=== PATIENT | female | born 1975 | race Caucasian/White ===

== ENCOUNTER 2018-02-09 11:12 | Observation (INO) ==
[2018-02-09 11:35] LABS: Bilirubin,Urine Negative (Negative); Blood,Urine Trace (Negative); Clarity,Urine Clear (Clear); Color,Urine Yellow (Yellow); Glucose,Urine (UA) Normal (Normal); Ketones,Urine Negative (Negative); Leukocyte Esterase,Urine Negative (Negative); Nitrite,Urine Negative (Negative); PH,Urine 6.5 pH Units (5.0-8.0); Protein,Urine Negative (Neg-Trace); Specific Gravity,Urine 1.009 (1.010-1.025); Urobilinogen,Urine Normal (Normal)
[2018-02-09 11:37] LABS: Bacteria,Urine None Seen per hpf (None-Few); Hyaline Casts,Urine None Seen per lpf (None-Few); RBC,Urine 0-3 per hpf (0-3); Squamous Epithelial Cell,Urine Moderate per lpf (None-Few); WBC,Urine 0-3 per hpf (0-3)
[2018-02-09 13:08] LABS: Basophils % 0.3 %; Eosinophils % 0.6 %; Hematocrit 40.8 % (35.3-44.9); Hemoglobin 13.5 g/dL (11.5-15.4); Immature Granulocytes % 0.4 % (0-4); Lymphocytes # 1.6 K/mcL (0.6-4.6); Lymphocytes % 22.1 %; Mean Corpuscular HGB Conc 33.1 g/dL (31.6-35.5); Mean Corpuscular Hemoglobin 27.7 pg (28.0-33.3); Mean Corpuscular Volume 83.8 fL (83.0-100.0); Mean Platelet Volume 11.8 fL (9.4-12.4); Monocytes # 0.4 K/mcL (0.0-1.3); Monocytes % 5.6 %; Platelet Count 210 K/mcL (140-400); Red Blood Count 4.87 M/mcL (3.82-4.97); Red Cell Distribution Width 13.2 % (11.5-14.5)
[2018-02-09 13:17] LABS: INR 1.2; Prothrombin Time 12.5 Seconds (9.4-12.1)
[2018-02-09 13:18] LABS: Troponin I < 0.03 ng/mL (< 0.04)
[2018-02-09 13:19] LABS: Activated Partial Thrombo Time 34.6 Seconds (26.0-36.0)
[2018-02-09 13:35] LABS: Alanine Aminotransferase 8 Units/L (7-52); Albumin 4.4 g/dL (3.5-5.7); Albumin/Globulin Ratio 1.6 (1.1-2.2); Alkaline Phosphatase 72 Units/L (34-104); Aspartate Amino Transferase 11 Units/L (13-39); BUN/Creatinine Ratio 19 (6-26); Bilirubin,Direct 0.2 mg/dL (0.0-0.2); Bilirubin,Indirect 0.7 mg/dL (0.0-1.2); Bilirubin,Total 0.9 mg/dL (0.3-1.0); Blood Urea Nitrogen 13 mg/dL (6-20); Calcium 9.5 mg/dL (8.6-10.3); Carbon Dioxide 25 mEq/L (23-29); Chloride 104 mEq/L (98-107); Globulin 2.8 g/dL (2.4-3.5); Glucose 104 mg/dL (70-105); Lipase 11 Units/L (11-82); Osmolality,Calculated 286 (280-300); Potassium 3.6 mEq/L (3.5-5.1); Sodium 138 mEq/L (136-145); Total Protein 7.2 g/dL (6.4-8.9); eGFR For African Americans > 60 (> 60); eGFR For Non-African Americans > 60 (> 60)
--- NOTE | 2018-02-09 14:49 | Emergency Department Note ---
Disposition Clinical Impression: Symptomatic bradycardia Disposition: Admitted As Inpatient Referrals: Azeb Lozada, REINFORCING IRON WORKER HELPER [Primary Care Provider] - Time of Disposition: 14:53 General Adult HPI - General Chief complaint: ED General Medical Stated complaint: low HR/flank pain Time Seen by Provider: 02/09/18 12:00 Source: patient Limitations: no limitations - History of Present Illness Pain Scale: 7 - Related Data Home Medications Medication Instructions Recorded Confirmed Propranolol HCl 40 mg PO BID 05/31/15 02/09/18 Tramadol HCl [Ultram] 50 mg PO QID PRN 11/20/16 02/09/18 Acetaminophen/Butalbital/Caffe 1 - 2 tab PO BID PRN 10/05/17 02/09/18 [Fioricet] Dicyclomine [Bentyl] 10 mg PO QID 10/05/17 02/09/18 Gabapentin [Neurontin] 600 mg PO HS 10/05/17 02/09/18 Lisinopril/Hydrochlorothiazide 1 tab PO DAILY 10/05/17 02/09/18 [Zestoretic 10-12.5 mg Tablet] Promethazine [Phenergan] 12.5 - 25 mg PO Q8H PRN 10/05/17 02/09/18 Sertraline [Zoloft] 75 mg PO DAILY 10/05/17 02/09/18 Pantoprazole Sodium [Protonix] 40 mg PO BID 02/09/18 02/09/18 Allergies Allergy/AdvReac Type Severity Reaction Status Date / Time NSAIDS (Non-Steroidal AdvReac See Verified 02/09/18 11:17 Anti-Inflamma Comments Past Medical History - Past Medical History Medical history: Reports: hypertension, migraine, other Surgical history: Reports: appendectomy, breast surgery, cholecystectomy, hysterectomy, orthopedic, other Psychiatric history: Reports: anxiety - Social History Smoking Status: Never smoker Smokeless Tobacco Status: No Alcohol use: Reports: none Drug use: Reports: none Physical Exam - General Limitations: no limitations General appearance: alert Course Vital Signs Temperature 98.4 F 02/09/18 11:17 Pulse Rate 45 02/09/18 11:17 Respiratory Rate 20 02/09/18 11:17 Blood Pressure 129/84 02/09/18 11:17 O2 Sat by Pulse Oximetry 99 02/09/18 11:17 Temperature 98.4 F 02/09/18 11:17 Pulse Rate 53 02/09/18 13:15 Respiratory Rate 15 02/09/18 13:15 Blood Pressure 113/75 02/09/18 13:15 O2 Sat by Pulse Oximetry 97 02/09/18 13:15 Oxygen Delivery Oxygen Delivery Room Air Medical Decision Making - Lab Data Result diagrams: 02/09/18 11:20 02/09/18 11:20 Lab Results 02/09/18 02/09/18 02/09/18 Range/Units 11:20 11:20 11:24 WBC 7.0 (4.3-11.1) K/mcL RBC 4.87 (3.82-4.97) M/mcL Hgb 13.5 (11.5-15.4) g/dL Hct 40.8 (35.3-44.9) % MCV 83.8 (83.0-100.0) fL MCH 27.7 L (28.0-33.3) pg MCHC 33.1 (31.6-35.5) g/dL RDW 13.2 (11.5-14.5) % Plt Count 210 (140-400) K/mcL MPV 11.8 (9.4-12.4) fL Immature Gran % 0.4 (0-4) % Seg Neutrophils % 71.0 % Lymphocytes % 22.1 % Monocytes % 5.6 % Eosinophils % 0.6 % Basophils % 0.3 % Neutrophils # 5.0 (1.6-8.9) K/mcL Lymphocytes # 1.6 (0.6-4.6) K/mcL Monocytes # 0.4 (0.0-1.3) K/mcL Eosinophils # 0.0 (0.0-0.6) K/mcL Basophils # 0.0 (0.0-0.2) K/mcL PT (9.4-12.1) Seconds INR APTT (26.0-36.0) Seconds Sodium 138 (136-145) mEq/L Potassium 3.6 (3.5-5.1) mEq/L Chloride 104 (98-107) mEq/L Carbon Dioxide 25 (23-29) mEq/L BUN 13 (6-20) mg/dL Creatinine 0.69 (0.60-1.20) mg/dL Est GFR ( Amer) > 60 (> 60) Est GFR (Non-Af Amer) > 60 (> 60) BUN/Creatinine Ratio 19 (6-26) Glucose 104 (70-105) mg/dL Calculated Osmolality 286 (280-300) Calcium 9.5 (8.6-10.3) mg/dL Total Bilirubin 0.9 (0.3-1.0) mg/dL Direct Bilirubin 0.2 (0.0-0.2) mg/dL Indirect Bilirubin 0.7 (0.0-1.2) mg/dL AST 11 L (13-39) Units/L ALT 8 (7-52) Units/L Alkaline Phosphatase 72 (34-104) Units/L Troponin I < 0.03 (< 0.04) ng/mL B-Natriuretic Peptide (Less than 100) pg/mL Serum Total Protein 7.2 (6.4-8.9) g/dL Albumin 4.4 (3.5-5.7) g/dL Globulin 2.8 (2.4-3.5) g/dL Albumin/Globulin Ratio 1.6 (1.1-2.2) Lipase 11 (11-82) Units/L Urine Color Yellow (Yellow) Urine Clarity Clear (Clear) Urine pH 6.5 (5.0-8.0) pH Units Ur Specific [place] 1.009 L (1.010-1.025) Urine Protein Negative (Neg-Trace) mg/dL Urine Glucose (UA) Normal (Normal) mg/dL Urine Ketones Negative (Negative) mg/dL Urine Blood Trace H (Negative) Urine Nitrite Negative (Negative) Urine Bilirubin Negative (Negative) Urine Urobilinogen Normal (Normal) mg/dL Ur Leukocyte Esterase Negative (Negative) Urine Microscopic RBC 0-3 (0-3) per hpf Urine Microscopic WBC 0-3 (0-3) per hpf Ur Squamous Epith Cells Moderate H (None-Few) per lpf Urine Bacteria None Seen (None-Few) per hpf Hyaline Casts None Seen (None-Few) per lpf Ur Culture Indicated? NO (NO) 02/09/18 02/09/18 Range/Units 12:25 12:25 WBC (4.3-11.1) K/mcL RBC (3.82-4.97) M/mcL Hgb (11.5-15.4) g/dL Hct (35.3-44.9) % MCV (83.0-100.0) fL MCH (28.0-33.3) pg MCHC (31.6-35.5) g/dL RDW (11.5-14.5) % Plt Count (140-400) K/mcL MPV (9.4-12.4) fL Immature Gran % (0-4) % Seg Neutrophils % % Lymphocytes % % Monocytes % % Eosinophils % % Basophils % % Neutrophils # (1.6-8.9) K/mcL Lymphocytes # (0.6-4.6) K/mcL Monocytes # (0.0-1.3) K/mcL Eosinophils # (0.0-0.6) K/mcL Basophils # (0.0-0.2) K/mcL PT 12.5 H (9.4-12.1) Seconds INR 1.2 APTT 34.6 (26.0-36.0) Seconds Sodium (136-145) mEq/L Potassium (3.5-5.1) mEq/L Chloride (98-107) mEq/L Carbon Dioxide (23-29) mEq/L BUN (6-20) mg/dL Creatinine (0.60-1.20) mg/dL Est GFR ( Amer) (> 60) Est GFR (Non-Af Amer) (> 60) BUN/Creatinine Ratio (6-26) Glucose (70-105) mg/dL Calculated Osmolality (280-300) Calcium (8.6-10.3) mg/dL Total Bilirubin (0.3-1.0) mg/dL Direct Bilirubin (0.0-0.2) mg/dL Indirect Bilirubin (0.0-1.2) mg/dL AST (13-39) Units/L ALT (7-52) Units/L Alkaline Phosphatase (34-104) Units/L Troponin I (< 0.04) ng/mL B-Natriuretic Peptide 17 (Less than 100) pg/mL Serum Total Protein (6.4-8.9) g/dL Albumin (3.5-5.7) g/dL Globulin (2.4-3.5) g/dL Albumin/Globulin Ratio (1.1-2.2) Lipase (11-82) Units/L Urine Color (Yellow) Urine Clarity (Clear) Urine pH (5.0-8.0) pH Units Ur Specific [place] (1.010-1.025) Urine Protein (Neg-Trace) mg/dL Urine Glucose (UA) (Normal) mg/dL Urine Ketones (Negative) mg/dL Urine Blood (Negative) Urine Nitrite (Negative) Urine Bilirubin (Negative) Urine Urobilinogen (Normal) mg/dL Ur Leukocyte Esterase (Negative) Urine Microscopic RBC (0-3) per hpf Urine Microscopic WBC (0-3) per hpf Ur Squamous Epith Cells (None-Few) per lpf Urine Bacteria (None-Few) per hpf Hyaline Casts (None-Few) per lpf Ur Culture Indicated? (NO) Attestation Statement - Attestation Attestation: I examined this patient and my medical decision-making was reviewed with the Resident Physician. I agree with the documented findings, disposition and treatment plan as described except to the extent set forth below. 42 year old elena novake to the eD with complaints of low heart rate and weakenss fatigue with flank pain. Jaky was being evaluted at urology today and initial vitsl signs were hr in 40s. She takes propanolol and lisiniporil for HTN but recently has lost 35 pound intentionally in the past 4 months diet control [place]. We will admit to medicine for symptomatic bradycardia
--- NOTE | 2018-02-09 15:08 | Emergency Department Note ---
Disposition Clinical Impression: Symptomatic bradycardia Disposition: Admitted As Inpatient Condition: Good Referrals: Azeb Lozada, DINKING MACHINE OPERATOR [Primary Care Provider] - Forms: ED Satisfaction Letter, Work/School Release Time of Disposition: 15:36 General Adult HPI - General Chief complaint: ED General Medical Stated complaint: low HR/flank pain Time Seen by Provider: 02/09/18 12:00 Source: patient Limitations: no limitations Nursing Notes Reviewed: Yes Vital Signs Reviewed: Yes - History of Present Illness HPI Narrative: Three-day history of generalized weakness. Also complaining of left flank pain. Was at Dr. Delgado's office today for evaluation for possible kidney stone. She has had a history of this several years ago. Reports some bleeding whenever she wipes. She is found to not have a urinary tract infection however she was found to be bradycardic. Currently on propranolol and lisinopril for high blood pressure. No chest pain no shortness of breath just generally weak. Pain Scale: 7 - Related Data Home Medications Medication Instructions Recorded Confirmed Propranolol HCl 40 mg PO BID 05/31/15 02/09/18 Tramadol HCl [Ultram] 50 mg PO QID PRN 11/20/16 02/09/18 Acetaminophen/Butalbital/Caffe 1 - 2 tab PO BID PRN 10/05/17 02/09/18 [Fioricet] Dicyclomine [Bentyl] 10 mg PO QID 10/05/17 02/09/18 Gabapentin [Neurontin] 600 mg PO HS 10/05/17 02/09/18 Lisinopril/Hydrochlorothiazide 1 tab PO DAILY 10/05/17 02/09/18 [Zestoretic 10-12.5 mg Tablet] Promethazine [Phenergan] 12.5 - 25 mg PO Q8H PRN 10/05/17 02/09/18 Sertraline [Zoloft] 75 mg PO DAILY 10/05/17 02/09/18 Pantoprazole Sodium [Protonix] 40 mg PO BID 02/09/18 02/09/18 Allergies Allergy/AdvReac Type Severity Reaction Status Date / Time NSAIDS (Non-Steroidal AdvReac See Verified 02/09/18 11:17 Anti-Inflamma Comments All systems ED: reviewed and negative except as stated. Constitutional: Denies: fever, chills Cardiovascular: Denies: chest pain, palpitations, syncope Respiratory: Denies: cough, dyspnea Gastrointestinal: Reports: nausea (Occasional). Denies: abdominal pain, vomiting, diarrhea Genitourinary: Reports: hematuria. Denies: urgency, dysuria, frequency Musculoskeletal: Reports: back pain (Left flank) Past Medical History - Past Medical History Attestation: Yes The following information was validated with the patient. Source: patient Medical history: Reports: hypertension, migraine, other Surgical history: Reports: appendectomy, breast surgery, cholecystectomy, hysterectomy, orthopedic, other Psychiatric history: Reports: anxiety - Social History Smoking Status: Never smoker Smokeless Tobacco Status: No Alcohol use: Reports: none Drug use: Reports: none Physical Exam - General Limitations: no limitations General appearance: alert, in no apparent distress - Head Head exam: atraumatic, normocephalic, normal inspection - Eye Eye exam: Present: normal appearance, PERRL, EOMI - ENT ENT exam: normal exam, normal oropharynx, mucous membranes moist - Neck Neck exam: Present: normal inspection, full ROM, trachea midline - Chest Chest inspection: Present: normal inspection, symmetric chest wall rise - Respiratory Respiratory exam: Present: normal lung sounds bilaterally - Cardiovascular Cardiovascular exam: Present: normal rhythm, bradycardia, normal heart sounds - Abdominal Exam Abdominal exam: Present: soft, Non-Tender. Absent: tenderness, distention, guarding, rebound, rigidity, organomegaly - Extremities Exam Extremities exam: Present: normal inspection. Absent: pedal edema - Back Exam Back exam: Present: normal inspection, full ROM, CVA tenderness (L). Absent: tenderness, CVA tenderness (R) - Neurological Exam Neurological exam: Present: alert, oriented X3 - Psychiatric Psychiatric exam: Present: normal affect, normal mood - Skin Skin exam: Present: warm, dry, intact, normal color. Absent: rash, cyanosis Course Course Narrative: Female patient with generalized weakness and excessive tiredness since Thursday. Is on propranolol and lisinopril for high blood pressure. Was being seen by Dr. Delgado's office today and evaluation for possible kidney stone. Has been complaining of left flank pain. Was sent to the emergency department because she was found to be bradycardic. Eyes any fevers or chills. She does report occasional nausea. She also reports some hematuria. She has CVA tenderness on exam. Lung sounds are clear heart tones are slow but normal. Abdomen is soft and nontender. CT of patient's abdomen showed no signs of nephrolithiasis. She does not have a UTI. Lab workup was normal. Patient's EKG showed no signs of heart block. She was bradycardic. We will hold the propranolol while she is here and admitted to the hospital for symptomatic bradycardia. - Consultations Consultation #1: Dr. Feliciano accepted patient in stable condition Vital Signs Temperature 98.4 F 02/09/18 11:17 Pulse Rate 45 02/09/18 11:17 Respiratory Rate 20 02/09/18 11:17 Blood Pressure 129/84 02/09/18 11:17 O2 Sat by Pulse Oximetry 99 02/09/18 11:17 Temperature 98.4 F 02/09/18 11:17 Pulse Rate 50 02/09/18 15:09 Respiratory Rate 16 02/09/18 15:09 Blood Pressure 110/57 02/09/18 15:09 O2 Sat by Pulse Oximetry 99 02/09/18 15:09 Oxygen Delivery Oxygen Delivery Room Air Medical Decision Making - Medical Records Medical records reviewed: Yes I reviewed the patient's medical records. - Lab Data Lab results reviewed: Yes I reviewed the patient's lab results. Result diagrams: 02/09/18 11:20 02/09/18 11:20 Lab Results 02/09/18 02/09/18 02/09/18 Range/Units 11:20 11:20 11:24 WBC 7.0 (4.3-11.1) K/mcL RBC 4.87 (3.82-4.97) M/mcL Hgb 13.5 (11.5-15.4) g/dL Hct 40.8 (35.3-44.9) % MCV 83.8 (83.0-100.0) fL MCH 27.7 L (28.0-33.3) pg MCHC 33.1 (31.6-35.5) g/dL RDW 13.2 (11.5-14.5) % Plt Count 210 (140-400) K/mcL MPV 11.8 (9.4-12.4) fL Immature Gran % 0.4 (0-4) % Seg Neutrophils % 71.0 % Lymphocytes % 22.1 % Monocytes % 5.6 % Eosinophils % 0.6 % Basophils % 0.3 % Neutrophils # 5.0 (1.6-8.9) K/mcL Lymphocytes # 1.6 (0.6-4.6) K/mcL Monocytes # 0.4 (0.0-1.3) K/mcL Eosinophils # 0.0 (0.0-0.6) K/mcL Basophils # 0.0 (0.0-0.2) K/mcL PT (9.4-12.1) Seconds INR APTT (26.0-36.0) Seconds Sodium 138 (136-145) mEq/L Potassium 3.6 (3.5-5.1) mEq/L Chloride 104 (98-107) mEq/L Carbon Dioxide 25 (23-29) mEq/L BUN 13 (6-20) mg/dL Creatinine 0.69 (0.60-1.20) mg/dL Est GFR ( Amer) > 60 (> 60) Est GFR (Non-Af Amer) > 60 (> 60) BUN/Creatinine Ratio 19 (6-26) Glucose 104 (70-105) mg/dL Calculated Osmolality 286 (280-300) Calcium 9.5 (8.6-10.3) mg/dL Total Bilirubin 0.9 (0.3-1.0) mg/dL Direct Bilirubin 0.2 (0.0-0.2) mg/dL Indirect Bilirubin 0.7 (0.0-1.2) mg/dL AST 11 L (13-39) Units/L ALT 8 (7-52) Units/L Alkaline Phosphatase 72 (34-104) Units/L Troponin I < 0.03 (< 0.04) ng/mL B-Natriuretic Peptide (Less than 100) pg/mL Serum Total Protein 7.2 (6.4-8.9) g/dL Albumin 4.4 (3.5-5.7) g/dL Globulin 2.8 (2.4-3.5) g/dL Albumin/Globulin Ratio 1.6 (1.1-2.2) Lipase 11 (11-82) Units/L Urine Color Yellow (Yellow) Urine Clarity Clear (Clear) Urine pH 6.5 (5.0-8.0) pH Units Ur Specific [place] 1.009 L (1.010-1.025) Urine Protein Negative (Neg-Trace) mg/dL Urine Glucose (UA) Normal (Normal) mg/dL Urine Ketones Negative (Negative) mg/dL Urine Blood Trace H (Negative) Urine Nitrite Negative (Negative) Urine Bilirubin Negative (Negative) Urine Urobilinogen Normal (Normal) mg/dL Ur Leukocyte Esterase Negative (Negative) Urine Microscopic RBC 0-3 (0-3) per hpf Urine Microscopic WBC 0-3 (0-3) per hpf Ur Squamous Epith Cells Moderate H (None-Few) per lpf Urine Bacteria None Seen (None-Few) per hpf Hyaline Casts None Seen (None-Few) per lpf Ur Culture Indicated? NO (NO) 02/09/18 02/09/18 Range/Units 12:25 12:25 WBC (4.3-11.1) K/mcL RBC (3.82-4.97) M/mcL Hgb (11.5-15.4) g/dL Hct (35.3-44.9) % MCV (83.0-100.0) fL MCH (28.0-33.3) pg MCHC (31.6-35.5) g/dL RDW (11.5-14.5) % Plt Count (140-400) K/mcL MPV (9.4-12.4) fL Immature Gran % (0-4) % Seg Neutrophils % % Lymphocytes % % Monocytes % % Eosinophils % % Basophils % % Neutrophils # (1.6-8.9) K/mcL Lymphocytes # (0.6-4.6) K/mcL Monocytes # (0.0-1.3) K/mcL Eosinophils # (0.0-0.6) K/mcL Basophils # (0.0-0.2) K/mcL PT 12.5 H (9.4-12.1) Seconds INR 1.2 APTT 34.6 (26.0-36.0) Seconds Sodium (136-145) mEq/L Potassium (3.5-5.1) mEq/L Chloride (98-107) mEq/L Carbon Dioxide (23-29) mEq/L BUN (6-20) mg/dL Creatinine (0.60-1.20) mg/dL Est GFR ( Amer) (> 60) Est GFR (Non-Af Amer) (> 60) BUN/Creatinine Ratio (6-26) Glucose (70-105) mg/dL Calculated Osmolality (280-300) Calcium (8.6-10.3) mg/dL Total Bilirubin (0.3-1.0) mg/dL Direct Bilirubin (0.0-0.2) mg/dL Indirect Bilirubin (0.0-1.2) mg/dL AST (13-39) Units/L ALT (7-52) Units/L Alkaline Phosphatase (34-104) Units/L Troponin I (< 0.04) ng/mL B-Natriuretic Peptide 17 (Less than 100) pg/mL Serum Total Protein (6.4-8.9) g/dL Albumin (3.5-5.7) g/dL Globulin (2.4-3.5) g/dL Albumin/Globulin Ratio (1.1-2.2) Lipase (11-82) Units/L Urine Color (Yellow) Urine Clarity (Clear) Urine pH (5.0-8.0) pH Units Ur Specific [place] (1.010-1.025) Urine Protein (Neg-Trace) mg/dL Urine Glucose (UA) (Normal) mg/dL Urine Ketones (Negative) mg/dL Urine Blood (Negative) Urine Nitrite (Negative) Urine Bilirubin (Negative) Urine Urobilinogen (Normal) mg/dL Ur Leukocyte Esterase (Negative) Urine Microscopic RBC (0-3) per hpf Urine Microscopic WBC (0-3) per hpf Ur Squamous Epith Cells (None-Few) per lpf Urine Bacteria (None-Few) per hpf Hyaline Casts (None-Few) per lpf Ur Culture Indicated? (NO) - Radiology Data Radiology results reviewed: Yes I reviewed the patient's radiology results. Chest X-Ray 02/09/18 12:25 IMPRESSION: No acute pulmonary process. D/ / Jean Claude Rodriguez / Jean Claude Rodriguez Interpreting Provider: Jean Claude Rodriguez Abdomen/Pelvis CT 02/09/18 13:40 IMPRESSION: Negative noncontrast CT examination of the abdomen and pelvis with no evidence of nephrolithiasis, obstructive uropathy or other acute process. D/ / Jeanna Fox MD / Jeanna Fox MD Interpreting Provider: Jeanna Fox MD - EKG Data EKG #1 EKG attestation: Yes I reviewed and interpreted this EKG. EKG results narrative: Sinus bradycardia at a rate of 52. IA intervals 156. QRS duration is 98. QTC is 467. QTC is 447. No signs of acute ischemia. No signs of a heart block. Patient was bradycardic at her last visit here in October on the 2016
[2018-02-09] MEDS ORDERED: Aspirin 325 MG TABLET PO ONE (15:12)
[2018-02-09] MEDS: Acetaminophen/Butalbital/CaffeineTABLET PO PRN (18:06)
[2018-02-09] MEDS ORDERED: 0.9 % Sodium Chloride 1,000 ML IVC SCH (18:30)
--- NOTE | 2018-02-09 18:42 | Internal Med History&Physical ---
Date of Encounter: 02/09/18 Time of Encounter: 18:30 Internal Medicine - H&P: HPI Chief complaint: Bradycardia Admitted From: Home Plans for Post Hospital Care: Home History of present illness: Ms. Maurice is a 42 year old female started having left flank pain and salt blood in her urine yesterday so she called the neurology office and went for evaluation. Patient was found to be bradycardic in the neurology office on [place] was in the 40s so she was sent to the emergency department for evaluation. EKG was done and showed sinus bradycardia. Patient has a history of kidney stones and she was concerned about this time. In the emergency department her heart rate was in the 50s. Patient denies any chest pain but she states that she felt weak and something funny in her chest. She denied any vomiting but she had some nausea which is chronic for her. She has a history of IBS and she has chronic diarrhea. Patient is taking propranolol and lisinopril for high blood pressure and she has been on both for about 4 years. Patient was following a strict diet and she lost 35 pounds within the last 4 months but her medications or not changed. On my interviewing the patient feels asymptomatic, denied any chest pain or shortness of breath, denied any dizziness, no nausea no vomiting no headache no blurry vision no abdominal pain. Past Med Surg Social Fam HX - Past Medical History Medical history: hypertension, migraine, other Additional medical history: IBS Psychiatric history: anxiety - Past Surgical History Surgical History: appendectomy, breast surgery, cholecystectomy, hysterectomy, orthopedic, other Additional surgical history: Bladder Suspension. Anal fissure. D&C. Mass removed from neck - Social History Smoking Status: Never smoker Smokeless Tobacco Status: No Alcohol use: none Drug use: none - Additional Family History Additional family history: Family history positive for high blood pressure Internal Medicine - H&P: Meds Propranolol HCl 40 mg PO BID 05/31/15 [History] Tramadol HCl [Ultram] 50 mg PO QID PRN 11/20/16 [History] Acetaminophen/Butalbital/Caffe [Fioricet] 1 - 2 tab PO BID PRN 10/05/17 [History ] Dicyclomine [Bentyl] 10 mg PO QID 10/05/17 [History] Gabapentin [Neurontin] 600 mg PO HS 10/05/17 [History] Lisinopril/Hydrochlorothiazide [Zestoretic 10-12.5 mg Tablet] 1 tab PO DAILY 08/10 [History] Promethazine [Phenergan] 12.5 - 25 mg PO Q8H PRN 10/05/17 [History] Sertraline [Zoloft] 75 mg PO DAILY 10/05/17 [History] Pantoprazole Sodium [Protonix] 40 mg PO BID 02/09/18 [History] 3 Allergy/AdvReac Type Severity Reaction Status Date / Time NSAIDS (Non-Steroidal AdvReac See Verified 02/09/18 11:17 Anti-Inflamma Comments All Systems PM: A 10-system review of systems was performed and is negative for pertinent findings except as documented above in the HPI. Review of systems: Comprehensive 10 point review of system was done and it was negative other than what was mentioned above - Constitutional Vitals: Temp Pulse Resp BP Pulse Ox 98.3 F 59 17 100/65 97 02/09/18 17:44 02/09/18 17:44 02/09/18 17:44 02/09/18 17:44 02/09/18 17:44 General appearance: Present: A&O X 3 - Head Head exam: Present: atraumatic, normocephalic - Eye Eye exam: Present: PERRL, conjuntiva pink, sclera anicteric Pupils: Present: PERRL - Neck Neck exam general surgery: Present: supple, trachea midline. Absent: lymphadenopathy - Respiratory Respiratory exam: Present: CTAB. Absent: accessory muscle use, rales, rhonchi, wheezes - Cardiovascular Cardiovascular exam: Present: RRR, +S1, +S2. Absent: diastolic murmur, gallop, rubs, systolic murmur - GI/Abdominal GI/Abdominal exam: Present: normal bowel sounds, soft, no peritoneal signs. Absent: distended, tenderness - Extremities Exam Extremities exam: Present: warm, radial pulses palpable and symmetrical. Absent : calf tenderness, cyanotic, pedal edema - Neurological Exam Neurological exam: Present: CN II-XII intact, oriented X3, no focal deficits. Absent: pronater drift, facial droop, speech deficit - Skin Skin exam: Present: dry, intact Internal Med - H&P Results - Labs CBC & Chem 7: 02/09/18 11:20 02/09/18 11:20 - Assessment and plan (1) Symptomatic bradycardia Current Visit: Yes Status: Acute Assessment and plan: Heart rate currently in the mid to high 50s. Patient is asymptomatic. Patient is taking propranolol twice daily and she did take it this morning. We will hold on beta marine and lisinopril for now Telemetry monitoring. Check echocardiogram for further evaluation of the heart structure and function Will get serial troponin every 6 hours for 2 more sets Check EKG in the morning Check fasting lipid profile. Check TSH Bradycardia probably related to beta marine dose that was aggravated by vagal reaction from abdominal pain. Still need to rule out structural/electrical cardiac cause. May need to consult cardiology depends on the test results and patient's symptoms, is improved patient can follow-up as an outpatient. I would not use propranolol for the indication of hypertension as a first line agent (2) Left flank pain Current Visit: Yes Status: Acute Assessment and plan: CT abdomen was negative for nephrolithiasis or any acute abnormality Patient had an episode of left flank pain and blood in the urine that resolved. She had a history of kidney stones in the past. She was seen by urology this morning. UA is negative Pain medications when necessary (3) History of IBS Current Visit: Yes Status: Acute (4) History of irritable bowel syndrome Current Visit: Yes Status: Acute Assessment and plan: Patient was evaluated in the past and diagnosed with IBS Continue symptomatic management (5) On esomeprazole prophylaxis Current Visit: Yes Status: Acute (6) DVT prophylaxis Current Visit: Yes Status: Acute Assessment and plan: We will encourage the patient to ambulate. May consider chemical DVT prophylaxis tomorrow if patient stays in the hospital and confirmation of resolved hematuria - Time Spent With Patient Total time spent is greater than 50% in coordination of care (as documented) at patient's floor/unit and/or counseling patient:
[2018-02-09] MEDS ORDERED: Naloxone 0.4 MG/ML INJ IVP PRN (19:08)
[2018-02-09] MEDS: Gabapentin 300 MG CAPSULE PO SCH (20:01)
[2018-02-10] MEDS: Acetaminophen/Butalbital/CaffeineTABLET PO PRN ×4 (00:05→22:41)
[2018-02-10 00:37] LABS: Basophils % 0.4 %; Eosinophils % 0.6 %; Hemoglobin 12.3 g/dL (11.5-15.4); Immature Granulocytes % 0.3 % (0-4); Lymphocytes # 2.4 K/mcL (0.6-4.6); Lymphocytes % 36.4 %; Mean Corpuscular HGB Conc 33.2 g/dL (31.6-35.5); Mean Corpuscular Hemoglobin 27.8 pg (28.0-33.3); Mean Corpuscular Volume 83.5 fL (83.0-100.0); Mean Platelet Volume 11.8 fL (9.4-12.4); Monocytes # 0.4 K/mcL (0.0-1.3); Monocytes % 6.3 %; Neutrophils # 3.7 K/mcL (1.6-8.9); Platelet Count 174 K/mcL (140-400); Red Blood Count 4.43 M/mcL (3.82-4.97); Red Cell Distribution Width 13.2 % (11.5-14.5)
[2018-02-10 00:55] LABS: BUN/Creatinine Ratio 18 (6-26); Blood Urea Nitrogen 13 mg/dL (6-20); Calcium 9.2 mg/dL (8.6-10.3); Carbon Dioxide 24 mEq/L (23-29); Chloride 106 mEq/L (98-107); Cholesterol 169 mg/dL (< 200); Glucose 96 mg/dL (70-105); HDL Cholesterol 34 mg/dL (40-59); LDL Cholesterol,Calculated 113 mg/dL (0-99); Magnesium 1.8 mg/dL (1.6-2.6); Osmolality,Calculated 288 (280-300); Potassium 3.1 mEq/L (3.5-5.1); Sodium 139 mEq/L (136-145); Triglycerides 110 mg/dL (< 150); eGFR For African Americans > 60 (> 60); eGFR For Non-African Americans > 60 (> 60)
[2018-02-10] MEDS: traMADol 50 MG TABLET PO PRN ×3 (06:52→21:01)
[2018-02-10] MEDS: 0.9 % Sodium Chloride 1,000 ML IVC SCH ×2 (10:45→20:59)
--- NOTE | 2018-02-10 12:29 | Electrocardiograph Report ---
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
--- NOTE | 2018-02-10 12:40 | Electrocardiograph Report ---
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
--- NOTE | 2018-02-10 14:53 | Electrocardiograph Report ---
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
[2018-02-10] MEDS: Gabapentin 300 MG CAPSULE PO SCH (20:58)
--- NOTE | 2018-02-10 23:41 | Internal Med Progress Note ---
Date of Encounter: 02/10/18 Time of Encounter: 23:40 - Assessment and plan (1) Symptomatic bradycardia Current Visit: Yes Status: Acute (2) Left flank pain Current Visit: Yes Status: Acute (3) IBS (irritable bowel syndrome) Current Visit: Yes Status: Acute (4) Acute hypokalemia Current Visit: Yes Status: Acute - Time Spent With Patient Total time spent is greater than 50% in coordination of care (as documented) at patient's floor/unit and/or counseling patient: - Constitutional Vitals: Temp Pulse Resp BP Pulse Ox 97.8 F 53 17 124/81 97 02/10/18 23:38 02/10/18 23:38 02/10/18 23:38 02/10/18 23:38 02/10/18 23:38 General appearance: Present: A&O X 3 Internal Medicine: Result - Labs CBC & Chem 7: 02/10/18 00:21 02/10/18 00:21 Labs: Short CBC 02/10/18 Range/Units 00:21 WBC 6.7 (4.3-11.1) K/mcL Hgb 12.3 (11.5-15.4) g/dL Hct 37.0 (35.3-44.9) % Plt Count 174 (140-400) K/mcL Neutrophils # 3.7 (1.6-8.9) K/mcL BMP 02/10/18 00:21 Sodium 139 Potassium 3.1 L Chloride 106 Carbon Dioxide 24 BUN 13 Creatinine 0.73 Glucose 96 Calcium 9.2 Cardiac Enzymes 02/10/18 02/10/18 Range/Units 00:21 06:51 Troponin I < 0.03 < 0.03 (< 0.04) ng/mL - ABG Interpretation ABG results: PT/INR, D-dimer PT 12.5 Seconds (9.4-12.1) H 02/09/18 12:25 - Impressions Impressions Echocardiogram 02/09/18 18:34 Impressions: LVEF 60-65%. Normal LV chamber size, wall thickness and function. Normal left ventricular diastolic function. Normal right ventricular structure and function. No evidence of pulmonary hypertension. No significant valvular dysfunction. Left Ventricular Wall Motion: Rest Echo Findings All wall segments showed normal motion. Findings: Study Quality * Technically adequate exam. ECG Findings * Sinus bradycardia. HR 50s. Left Ventricle * LVEF 60-65%. * Normal LV chamber size, wall thickness and function. * Normal left ventricular diastolic function. Right Ventricle * Normal right ventricular structure and function. Left Atrium * Mildly dilated left atrium. Right Atrium * Normal right atrial size. Aortic Valve * Trileaflet aortic valve with normal function. * No aortic stenosis. * No aortic regurgitation. Mitral Valve * Normal mitral valve structure and function. * No mitral regurgitation. * No mitral stenosis. Tricuspid Valve * Normal tricuspid valve structure and function. * Trace tricuspid regurgitation. * No evidence of pulmonary hypertension. Pulmonic Valve * Pulmonic valve is not well visualized. * No pulmonic regurgitation. Aorta * Normally sized aortic root. Pericardium * The pericardium appears normal. IVC * Normal IVC dimensions and inspiratory collapse. Pulmonary Artery * Normal visualized portions of the main pulmonary artery. Retroperitoneum Ultrasound 02/10/18 18:30 IMPRESSION: Unremarkable ultrasound of the kidneys and urinary bladder. D/ / Tanmay Gaston MD / Tanmay Gaston MD Interpreting Provider: Tanmay Gaston MD Consult Discharge Plan - Plan Referrals: Azeb Lozada, SUPER[employer] [Primary Care Provider] -
[2018-02-11] MEDS: Acetaminophen/Butalbital/CaffeineTABLET PO PRN (06:39)
[2018-02-11] MEDS: 0.9 % Sodium Chloride 1,000 ML IVC SCH (09:17)
[2018-02-11 11:46] VITALS: BP 111/74
--- NOTE | 2018-02-11 12:12 | Discharge Summary ---
- NOTES TO OUTPATIENT PROVIDER Notes to Outpatient Provider: Follow-up with urology for workup of her hematuria. Orders not resulted at time of discharge: Pending orders 02/09/18 23:57 EKG [ECG 12 lead ECG] [ECG] Stat 02/11/18 11:34 Electrolytes Stat Date of Encounter: 02/11/18 Time of Encounter: 12:10 - Discharge Diagnosis (1) Symptomatic bradycardia Status: Acute (2) Left flank pain Status: Acute (3) IBS (irritable bowel syndrome) Status: Acute (4) Acute hypokalemia Status: Acute Hospital course: Ms. Maurice is a 42 year old female - Time Spent with Patient Total time spent providing and/or coordinating discharge services: Greater than 30 minutes (40 MINUTES) - Discharge Medications Prescriptions: Potassium Chloride 20 meq PO BID #60 tab.er.prt Home Medications: Tramadol HCl [Ultram] 50 mg PO QID PRN 11/20/16 [History] Acetaminophen/Butalbital/Caffe [Fioricet] 1 - 2 tab PO BID PRN 10/05/17 [History ] Dicyclomine [Bentyl] 10 mg PO QID 10/05/17 [History] Gabapentin [Neurontin] 600 mg PO HS 10/05/17 [History] Lisinopril/Hydrochlorothiazide [Zestoretic 10-12.5 mg Tablet] 1 tab PO DAILY 08/10 [History] Promethazine [Phenergan] 12.5 - 25 mg PO Q8H PRN 10/05/17 [History] Sertraline [Zoloft] 75 mg PO DAILY 10/05/17 [History] Pantoprazole Sodium [Protonix] 40 mg PO BID 02/09/18 [History] Potassium Chloride 20 meq PO BID #60 tab.er.prt 02/11/18 [Rx] Allergies/Adverse Reactions: 3 Allergy/AdvReac Type Severity Reaction Status Date / Time NSAIDS (Non-Steroidal AdvReac See Verified 02/09/18 11:17 Anti-Inflamma Comments Date of admission: 02/09/18 15:33 Primary care physician: Azeb Lozada BIRTH ATTENDANT Discharging clinician: Ed Bay Anticipated date of discharge: 02/11/18 - Constitutional Vitals: Temp Pulse Resp BP Pulse Ox 97.3 F L 54 16 111/74 98 02/11/18 11:33 02/11/18 11:33 02/11/18 11:33 02/11/18 11:33 02/11/18 11:33 General appearance: Present: A&O X 3, no acute distress, answers questions appropriately - Respiratory Respiratory exam: Present: CTAB. Absent: accessory muscle use, rales, rhonchi, wheezes - Cardiovascular Cardiovascular exam: Present: bradycardia, RRR, +S1, +S2. Absent: diastolic murmur, gallop, rubs, systolic murmur Additional comments: She has mild BRADYcardia; without any symptoms. We stopped her propranolol. - GI/Abdominal GI/Abdominal exam: Present: normal bowel sounds, soft, no peritoneal signs. Absent: distended, tenderness - Patient Status Disposition: Home, Self-Care Condition: Good Functional capacity at discharge: independent ambulation Overall status at discharge: patient is back to baseline - Discharge Instructions Follow Up With: Azeb Lozada BIRTH ATTENDANT [Primary Care Provider] - Additional Instructions: Sick leave from February 09 through February 14. Resume working on February 15. She is to follow up with her urologist; experienced mild hematuria recently. She is after hysterectomy. Her ultrasound of kidneys is unremarkable. - Diet and Activity Activity: resume usual activities as tolerated - VTE Deep Vein Thrombosis/Pulmonary Embolism Present on Admission: No
[2018-02-11 12:45] LABS: Potassium 3.8 mEq/L (3.5-5.1)
== END 2018-02-11 14:44 | disposition home or self-care (01) ==
LOC: 2ANU 11:12 → EMEROO 11:12 → SUATTDRO 15:33 → 2ANU 17:03
PROVIDERS: ADMIT Internal Medicine; ATTEND Internal Medicine

== ENCOUNTER 2018-03-18 06:31 | Observation (INO) ==
[2018-03-18] MEDS ORDERED: CeFAZolin Syr 2,000MG/20 ML 2,000 MG/20 ML SYRINGE IVPB ONE (06:57)
[2018-03-18] MEDS ORDERED: Ringers Solution, Lactated 1,000 ML IVC SCH (07:00)
--- NOTE | 2018-03-18 07:01 | History & Physical Report ---
Date of Encounter: 03/18/18 Time of Encounter: 07:00 24 Hour HP Update - Instructions Instructions: If the History and Physical is less than 30 days old and was completed prior to A.M. admission and or procedure and has NOT been updated on calendar day of procedure please complete this update prior to performing procedure. - Update Patient reports changes in Medical Condition: No Changes in examination, assessment, or condition: No Changes in Medication: No Preop tests/diagnostics Reviewed: Yes Surgery Remains Indicated: Yes Consent for Planned Operative Procedure(s) Verified: Yes - Pre-Operative Checklist Preoperative Checklist Indicated: Yes Prophylactic Antibiotic Ordered: Yes Home Medications Include Beta Lesley: No Is VTE Prophylaxis Indicated?: Yes
[2018-03-18] MEDS ORDERED: Acetaminophen IV 1,000 MG/100 ML INFUS..BTL IVPB ONE (07:15)
[2018-03-18] MEDS ORDERED: Famotidine 20 MG/2 ML VIAL IVP ONE (07:15)
[2018-03-18] MEDS ORDERED: Pregabalin 75 MG CAPSULE PO ONE (07:15)
[2018-03-18] MEDS ORDERED: *HR* FentaNYL (PF) 100 MCG/2 ML VIAL ONE (07:18)
[2018-03-18] MEDS ORDERED: Ondansetron 4 MG/2 ML VIAL ONE (07:18)
[2018-03-18] MEDS ORDERED: *HR* Rocuronium Bromide 50 MG/5 ML VIAL ONE ×2 (07:18→08:19)
[2018-03-18] MEDS ORDERED: Lidocaine -MPF 2% 2 ML VIAL ONE (07:18)
[2018-03-18] MEDS ORDERED: *HR* Propofol 200 MG/20 ML VIAL IVP ONE (07:18)
[2018-03-18] MEDS ORDERED: *HR* Midazolam HCl 2 MG/2 ML VIAL ONE (07:18)
[2018-03-18] MEDS ORDERED: Dexamethasone 4 MG/ML VIAL ONE (07:18)
[2018-03-18] MEDS ORDERED: *HR* Succinylcholine 200 MG/10 ML VIAL IVP ONE (07:18)
--- NOTE | 2018-03-18 07:18 | Anesthesia Evaluation PreOp ---
Date of Encounter: 03/18/18 Time of Encounter: 07:15 - Past History Planned Operation: Lap Jigna Fundoplication Cardiac History: HTN Pulmonary History: Former smoker FACULTY NEUROPSYCHOLOGIST History: Denies Any Significant HX Other Medical History: GERD, Other (Obese) Anesthesia History: No Prior Anesthetic Complications : No (Partial Hysterectomy) Alcohol Use: none Drug use: none Medications and Allergies Tramadol HCl [Ultram] 50 mg PO QID PRN 11/20/16 [History] Acetaminophen/Butalbital/Caffe [Fioricet] 1 - 2 tab PO BID PRN 10/05/17 [History ] Dicyclomine [Bentyl] 10 mg PO QID 10/05/17 [History] Gabapentin [Neurontin] 600 mg PO HS 10/05/17 [History] Lisinopril/Hydrochlorothiazide [Zestoretic 10-12.5 mg Tablet] 1 tab PO DAILY 08/10 [History] Promethazine [Phenergan] 12.5 - 25 mg PO Q8H PRN 10/05/17 [History] Sertraline [Zoloft] 75 mg PO DAILY 10/05/17 [History] Pantoprazole Sodium [Protonix] 40 mg PO BID 02/09/18 [History] Potassium Chloride 20 meq PO BID #60 tab.er.prt 02/11/18 [Rx] 3 Allergy/AdvReac Type Severity Reaction Status Date / Time NSAIDS (Non-Steroidal AdvReac See Verified 02/09/18 11:17 Anti-Inflamma Comments Anesthesia Results - Labs Laboratory Tests 02/10/18 02/10/18 02/11/18 00:21 00:21 11:34 Hgb 12.3 Hct 37.0 Plt Count 174 Sodium 140 Potassium 3.8 Carbon Dioxide 20 L BUN 13 - Imaging EKG: report reviewed (SR) Additional studies: ECHO EF 60%, no pulm htn Anesthesia Exam O2 Sat Height 1.65 m Height 1.65 m Height 1.65 m Weight 107.501 kg Weight 107.501 kg Weight 107.501 kg O2 Sat by Pulse Oximetry 100 O2 Sat by Pulse Oximetry 100 Vital Signs Temp Pulse Resp BP Pulse Ox 98 F 75 16 131/74 100 03/18/18 06:53 03/18/18 06:53 03/18/18 06:53 03/18/18 06:53 03/18/18 06:53 Height: 5'5 Weight: 237 lbs NPO (# of Hours): MN Pain Scale: 0 - HEENT Pupil (Motor): Pupils equal, EOMI Mallampati: II Teeth: Normal Oral Opening: Greater than 3 - FACULTY NEUROPSYCHOLOGIST LOC: Oriented FACULTY NEUROPSYCHOLOGIST Motor: Normal RUE, Normal LUE, Normal RLE, Normal LLE, Normal Face FACULTY NEUROPSYCHOLOGIST Sensory: Normal: RUE, LUE, RLE, LLE, Face - Cardiac Rhythm: Regular Murmur: None JVD: No Carotid Bruit: No - Pulmonary Breath Sounds: bilateral Clear Respiratory Effort: Symmetrical Anesthesia Assess/Plan ASA Score: 2 Modified [place] Scale for Level of Consciousness: Cooperative, oriented, and tranquil Anesthetic Plan: General Monitoring Plan: Standard Monitors Recovery Plan: PACU (Discussed GA, possible TAP rescue block post op, agreers to proceed)
[2018-03-18] MEDS ORDERED: Lidocaine -MPF 4% 5 ML AMPUL ONE (07:19)
[2018-03-18] MEDS ORDERED: *HR* Remifentanil 1 MG VIAL IVP ONE (07:25)
[2018-03-18] MEDS ORDERED: *HR* Morphine 10 MG/ML VIAL ONE (08:13)
[2018-03-18] MEDS ORDERED: MORPHINE SUL Oral CONC 10 MG/0.5 ML ORAL.SYG SL PRN (08:43)
[2018-03-18] MEDS ORDERED: *HR* Promethazine 25 MG/ML VIAL IVP PRN (08:43)
[2018-03-18] MEDS ORDERED: *HR* HYDROmorphone 2 MG TABLET PO PRN (08:43)
[2018-03-18] MEDS ORDERED: *HR* OxyCODONE Immed Rel 5 MG TABLET PO PRN (08:43)
[2018-03-18] MEDS ORDERED: Dexamethasone 4 MG/ML VIAL IVP ONE (08:43)
[2018-03-18] MEDS ORDERED: Ondansetron 4 MG/2 ML VIAL IVP ONE (08:43)
[2018-03-18] MEDS ORDERED: Neostigmine Methylsulfate 3 MG/3 ML SYRINGE ONE (09:19)
--- NOTE | 2018-03-18 09:26 | Operative Note ---
Date of procedure: 03/18/18 Pre-op diagnosis: Severe gastroesophageal reflux disease Post-op diagnosis: same Procedure: #1 laparoscopic hiatal hernia repair #2 laparoscopic Jigna fundoplication Anesthesia: HELLEN Surgeon: Olivier Ernst Was there an certified surgical assistant present: Yes Aircraft Machinist Helper: Rosalia Valero Estimated blood loss (cc): 5 Specimen: None Condition: stable Disposition: PACU Procedure in Detail: After informed consent the patients taking major operative suite placed supine position given adequate general endotracheal anesthesia. The patient was placed in lithotomy. The abdomen was prepped and draped in sterile fashion utilizing ChloraPrep standard draping techniques. Timeout was taken and the patient was identified. I made a vertical midline incision above the umbilicus and dissected down the level of fascia. 2 traction stitches were placed. The abdomen was entered visually. I placed a Collado trocar. The abdomen was insufflated to 15 mmHg pressure CO2. I placed a 12 trocar in the right subcostal area I placed a 11 trocar right subxiphoid area. I placed a 5 trocar in the left subxiphoid area. I placed a 11 trocar in the left subcostal area. A paddle retractor was placed under the lateral segment of the left lobe liver and retracted. His was secured with a retractor clamp. A lighted 56-Czech bougie was placed in the esophagus to aid with esophageal identification and wrapped tension. I dissected the right patricia of the diaphragm. The peritoneum anterior to the esophagus was divided. The cardia was retracted downward and to the right. I divided the short gastrics to the cardia using Harmonic scalpel and 10 mm clips once the cardia was completely mobilized off the left patricia of the diaphragm and the stomach was completely freed spleen, I returned to the right patricia dissection. I then passed a Nina drain behind the gastroesophageal junction and retracted the retroesophageal junction downward and to the left. I repaired the hiatal hernia with 3 stitches of 0 Ethibond. This gave an excellent technical repair tension was perfect. I then brought the cardia behind the gastroesophageal junction and created the Jigna fundoplication wrap using 3 stitches of 0 Ethibond. Tension was perfect. Mobility was confirmed with drop test and shoeshine test prior to wrap. I placed 2 shoulder stitches to secure the Jigna fundoplication to the diaphragm using 0 Ethibond. Photographic documentation was taken. The bougie was removed. He tolerated the procedure very well. All trochars were removed. Fascia was closed with 0 Vicryl in the skin was closed with 2-0 Vicryl and 4-0 Vicryl. She tolerated the procedure very well
[2018-03-18] MEDS ORDERED: *HR* Meperidine 25 MG/ML SYRINGE ONE (09:47)
[2018-03-18] MEDS: OXYCODONE Oral CONC 10 MG/0.5 ML ORAL.SYG SL PRN ×3 (12:29→21:11)
[2018-03-18] MEDS: Ondansetron 4 MG/2 ML VIAL IVP PRN (12:30)
[2018-03-18] MEDS: 0.9 % Sodium Chloride 1,000 ML IVC SCH (12:31)
[2018-03-18] MEDS: *HR* OxyCODONE/APAP 5/325 TABLET PO PRN ×3 (15:05→23:59)
[2018-03-18] MEDS: CeFAZolin Syr 3,000MG/30 ML 3,000 MG/30 ML SYRINGE IVPB SCH ×2 (15:57→23:52)
[2018-03-19] MEDS: 0.9 % Sodium Chloride 1,000 ML IVC SCH (01:02)
[2018-03-19] MEDS: OXYCODONE Oral CONC 10 MG/0.5 ML ORAL.SYG SL PRN ×3 (04:02→14:17)
[2018-03-19] MEDS: *HR* OxyCODONE/APAP 5/325 TABLET PO PRN ×2 (06:30→11:08)
[2018-03-19] MEDS ORDERED: Pantoprazole 40 MG VIAL IVP SCH (09:00)
[2018-03-19 11:15] VITALS: BP 128/83
[2018-03-19] MEDS: Ondansetron 4 MG/2 ML VIAL IVP PRN (12:17)
--- NOTE | 2018-03-19 14:07 | Discharge Summary ---
Date of Encounter: 03/19/18 Time of Encounter: 14:12 - Discharge Diagnosis (1) Status post Jigna fundoplication Priority: Primary Status: Acute (2) Hiatal hernia Priority: Primary Status: Acute (3) GERD (gastroesophageal reflux disease) Priority: Primary Status: Acute Qualifiers: Esophagitis presence: with esophagitis Qualified Code(s): K21.0 - Gastro- esophageal reflux disease with esophagitis General Surgery Exam Initial Vital Signs Temp Pulse Resp BP Pulse Ox 98 F 75 16 131/74 100 03/18/18 06:53 03/18/18 06:53 03/18/18 06:53 03/18/18 06:53 03/18/18 06:53 Vital Signs Temp Pulse Resp BP Pulse Ox 03/19/18 11:12 97.7 F 58 16 128/83 97 03/19/18 07:54 98 03/19/18 07:22 98.3 F 60 14 122/78 98 03/19/18 04:00 98.2 F 61 15 126/77 96 03/19/18 00:02 98.6 F 50 14 139/77 99 03/18/18 20:26 98.5 F 54 16 121/78 97 03/18/18 19:58 93 03/18/18 14:59 98.7 F 72 16 115/77 93 Intake and Output 03/18/18 03/19/18 03/19/18 23:59 07:59 15:59 Intake Total 930 / 930 0 / 0 Output Total 600 / 600 1200 / 1200 250 / 250 Balance -570 / -570 -270 / -270 -250 / -250 Intake: IV Fluids 930 / 930 0.9 % Sodium Chloride 1,000 ML 900 / 900 @ 75 mls/hr IVC .[id number] [facility] Rx #:[id number] Ancef Syringe 3,000 MG/30 ML 3, 30 / 30 30 / 30 000 mg In 30 ml @ 200 mls/hr IVPB Q8HR [facility] Rx#:[id number] Oral 0 / 0 0 / 0 0 / 0 Output: Urine 600 / 600 1200 / 1200 250 / 250 Other: Meal Breakfast Percent of Meal Consumed 0% VITAL SIGNS: [facility]. [facility] GENERAL: In no apparent distress. HEENT: Normocephalic, atraumatic, pupils are equal and reactive, extraocular motions intact, oropharynx is pink and moist, there is no neck adenopathy or JVD noted. CHEST/RESPIRATORY: The thorax is free from signs of trauma. Lung sounds: clear to auscultation, normal respiratory effort CARDIAC: Regular rate and rhythm. Normal S1 and S2, without murmurs, gallops, or rubs. VASCULAR: No Edema. 2+ peripheral pulses. ABDOMEN: soft, expected postoperative tenderness, hypoactive bowel sounds INCISION: Surgical incision is clean, dry, and intact. There are no signs of cellulitis or infection noted. MUSCULOSKELETAL: Good range of motion of all major joints. Extremities without clubbing, cyanosis or edema. NEUROLOGIC EXAM: Alert and oriented x 3. Speech normal. Follows commands. PSYCHIATRIC: Mood normal. SKIN: No rash or lesions. - Hospital Course Hospital course: Ms. Maurice is a 42 year old female who presented on 03/18/2018 with severe gastroesophageal reflux disease, she underwent a laparoscopic hiatal hernia repair and Jigna fundoplication by Dr. Ernst. She is tolerating the thin liquids without nausea or vomiting, vital signs are stable, denies symptoms of Gerd, and is afebrile. We will begin discharge planning to home with a follow- up in the office in approximately 2 weeks. - Time Spent with Patient Total time spent providing and/or coordinating discharge services: - Discharge Medications Home Medications: Dicyclomine [Bentyl] 10 mg PO QID 10/05/17 [History] Sertraline [Zoloft] 75 mg PO DAILY 10/05/17 [History] Pantoprazole Sodium [Protonix] 40 mg PO BID 02/09/18 [History] Ondansetron HCl [Zofran] 4 - 8 mg PO PRN 03/18/18 [History] Sucralfate [Carafate] 1 gm PO TID 03/18/18 [History] Docusate Sodium [Colace] 100 mg PO BID PRN #30 capsule 03/19/18 [Rx] Ondansetron ODT [Zofran ODT] 4 mg SL Q4HR PRN #30 tab.rapdis 03/19/18 [Rx] OxyCODONE/APAP 5/325 [Percocet 5/325 MG] 1 each PO Q6HR PRN 7 Days #28 tablet [Rx] Allergies/Adverse Reactions: 3 Allergy/AdvReac Type Severity Reaction Status Date / Time NSAIDS (Non-Steroidal AdvReac See Verified 02/09/18 11:17 Anti-Inflamma Comments Date of admission: 03/18/18 16:06 Primary care physician: Azeb Lozada CNP Discharging clinician: Lisa Carnes Anticipated date of discharge: 03/19/18 - Patient Status Disposition: Home, Self-Care Condition: Good Functional capacity at discharge: independent ambulation Overall status at discharge: patient is progressing back to baseline - Discharge Instructions Instructions: Adult Laparoscopic Jigna Fundoplication (DC) Follow Up With: Lexis Maurice CNP [Advanced Practice Nurse] - 04/01/18 9:30 am Azeb Lozada CNP [Primary Care Provider] - Additional Instructions: General Instructions After Jigna Surgery 1. No pushing, pulling, or lifting greater than 15 lbs for two weeks. 2. You may shower beginning today, but no tub baths, soaking, or swimming for 2 weeks. 3. You may resume driving when you are off narcotics and are safe to react in a car. 4. Take narcotics as directed. Do not take more narcotics then directed and do not share your narcotics with any other person. Do not drink alcohol while on narcotics. 5. Take stool softeners (Colace) or a water based laxative (Miramax) while taking narcotics. You may hold for loose stools. 6. Report any fevers greater than 100.5F, increase abdominal discomfort, drainage that looks like pus, increased redness or pain at the surgical site, or any vomiting. 7. Report any pain in the calves, shortness of breath, or rapid heartbeat. 8. Continue to take your heartburn medications until directed to stop. Do not stop them abruptly as this can cause symptoms of reflux. 9. Do not drink alcohol or carbonated beverages. 10. Do not deviate from the recommended Jigna diet below. Doing so can affect your outcomes. 11. Do NOT stop your protonix or PPI therapy until directed to do so by surgery. [place] [facility] Diet After Jigna Fundoplication Surgery This diet information is for patients who have recently had Jigna Fundoplication Surgery to correct reflux disease or to repair various types of hernias, such as hiatal hernia and intrathoracic stomach. This diet may also be used for other gastrointestinal surgeries, such as Heller myotomy and repair of achalasia. The diet will help control diarrhea, excess gas and swallowing problems, which may occur after this type of surgery. Important Steps to Keep Your Stomach From Stretching Eat small, frequent meals (six to eight per day). This will help you consume the majority of the nutrients you need without causing your stomach to feel full or distended. Drinking large amounts of fluids with meals can stretch your stomach. You may drink fluids between meals as often as you like, but limit fluids to 1/2 cup (4 fluid ounces) with meals and one cup (8 fluid ounces) with snacks. Sit upright while eating, and stay upright for 30 minutes after each meal. Deale can help food move through your digestive tract. Do not lie down after eating. Sit upright for 2 hours after your last meal or snack of the day. Eat very slowly. Take your time when eating. Take small bites and chew your food well to hot top liner helper in swallowing and digestion. Avoid crusty breads and sticky, gummy foods, such as bananas, fresh doughy breads, rolls and doughnuts. These types of foods become sticky and difficult to swallow. Toasted breads tend to be better tolerated. Lastly, if you eat sweets, consume them at the end of your meal to avoid a group of symptoms referred to as dumping syndrome. This describes the rapid emptying of foods from the stomach to the small intestine. Sweetened beverages, candy and desserts move more rapidly and dump quickly into the intestines. This can cause symptoms of nausea, weakness, cold sweats, cramps, diarrhea and dizzy spells. Important Steps to Avoid Gas Do not drink through a straw, chew gum, or chew tobacco. These actions cause you to swallow air, which will produce excess gas in your stomach. Chew with your mouth closed and chew your food thoroughly. Avoid foods that cause stomach gas and distention. The foods include corn, dried beans, peas, lentils, onions, broccoli, cauliflower, and any food item from the cabbage family. Do not drink carbonated drinks, alcohol, citrus, or tomato products. What Will I Be Able To Eat and Drink After Surgery After Jigna Fundoplication Surgery, your diet will be advanced slowly by your surgeon. Generally, you will be on a thin/clear liquid diet for the first 10 days. Then you will advance to the full liquid diet for 4 days and eventually to a Jigna soft diet for 7 days. After any surgery, protein consumption is important for healing. To get enough protein, drink 3-4 [place] Instant Breakfast, Ensure, or equivalent daily. Reminder: Carbonated beverages (such as sodas, energy drinks, flavored carbonated water), and alcohol are not permitted for the 1st 6 to 8 weeks after surgery. After this time you may attempt to reintroduce them in small amounts. Please note: Dairy products such as milk, ice cream, and pudding may cause diarrhea in some people after surgery. You may need to avoid milk products. If so you may substitute them with lactose free beverages, such as soy, rice, lactate, or almond milk. Please be aware that each patient's tolerance to food is different. Your doctor will advance your diet depending on how well you progress after surgery. Thin Liquid Diet The first diet after Jigna Fundoplication Surgery is the thin liquids diet. Follow this diet for postoperative days 1-10 03/19/2018- 03/28/2018. Thin liquids include: Apple, Cranberry, or Grape Juice (no citrus juice) Chicken Broth Beef Broth Flavored Gelatin (Jell-O) Decaffeinated Tea or Coffee Popsicles or Polish Ice Caffeinated Beverages Will Be Permitted Based upon Tolerance and at a later date Dairy if tolerated Thin Milkshakes (strawberry or vanilla flavored- No chocolate) Drink 3-4 Eldred instant breakfast, Ensure, or equivalent daily. May be mixed with dairy for thin milkshakes Full Liquid Diet Follow this diet for postoperative days 11-14 03/29/2018 - 04/01/2018. Full liquid diet includes anything in the thin liquid diet plus: Milk: Dairy, Soy, Rice, and [place] (No Chocolate) Cream of Wheat, Cream of Rice, Grits Strained Creamed Soups (No Tomato or Broccoli) Vanilla and [place] Flavored Ice Cream Sherbet Vanilla and Butterscotch Pudding (No Chocolate or Coconut) Continue 3-4 Eldred Instant Breakfast, Ensure, or an Equivalent Daily. May be mixed with Dairy for Thin Milkshakes. Jigna Soft Diet Follow this diet for postoperative days 15-20 04/02/2018 - 04/07/2018. (If you are consuming enough protein, you may stop the protein supplements). Please note: You will need extra fluids throughout the day to meet your fluid needs. - Diet and Activity Activity: increase activity as tolerated Diet: other (Do not deviate from the Jigna diet)
== END 2018-03-19 15:16 | disposition home or self-care (01) ==
LOC: 3ANU 06:31 → SAMDAY 06:31 → 3ANU 11:49
PROVIDERS: ADMIT Surgery; ATTEND Surgery